=== PATIENT | male | born 1985 | race Caucasian/White ===

== ENCOUNTER 2022-10-07 11:59 | Emergency (ER) | payer SELFPAY ==
[~2022-10-07] VITALS: Ht 172.7 cm; Wt 74.8 kg
[2022-10-07 12:07] VITALS: BP 138/81
--- NOTE | 2022-10-07 13:00 | NUR ---
PT RECEIVED, CARE ASSUMED. PT A/OX4. PT PRESENTS SELF TO ER WITH C/O ABDO PAIN AND DIZZINESS. CONNECTED PT TO TELE MONITOR: SR 78. COLLECTED URINE. AWAITING TO BE SEEN BY
[2022-10-07 14:15] LABS: APPEARANCE,URINE CLEAR (CLEAR); BILIRUBIN,URINE NEGATIVE (NEGATIVE); BLOOD, URINE NEGATIVE (NEGATIVE); COLOR,URINE YELLOW (YELLOW); LEUKOCYTE ESTERASE ,URINE NEGATIVE (NEGATIVE); NITRITE, URINE NEGATIVE (NEGATIVE); UGLUCOSE NEGATIVE (NEGATIVE)
[2022-10-07 14:17] LABS: BASOPHILS % (AUTO) 0.5 % (0.0-2.0); EOSINOPHILS # (AUTO) 0.1 K/uL (0-0.4); HEMATOCRIT 45.6 % (36-52); HEMOGLOBIN 15.5 g/dL (12.0-18.0); LYMPHOCYTES # (AUTO) 2.3 K/uL (2.0-11.5); LYMPHOCYTES % (AUTO) 35.2 % (20.5-51.1); MEAN CORPUSCULAR HEMOGLOBIN 32 pg (27-31); MEAN CORPUSCULAR HGB CONC 34 g/dL (33-37); MEAN CORPUSCULAR VOLUME 92.7 fL (80-94); MONOCYTES # (AUTO) 0.5 K/uL (0.8-1.0); MONOCYTES % (AUTO) 7.7 % (1.7-9.3); NEUTROPHILS # (AUTO) 3.6 K/uL (1.8-7.7); NEUTROPHILS % (AUTO) 55.6 % (42.2-75.2); PLATELET COUNT (AUTO) 176 K/uL (140-450); RED BLOOD CELL COUNT(AUTO) 4.93 MIL/uL (4.20-6.10); RED CELL DISTRIBUTION WIDTH 13.1 % (11.6-13.7); WHITE BLOOD COUNT (AUTO) 6.5 K/uL (4.8-10.8)
[2022-10-07 14:40] LABS: ALBUMIN 4.8 g/dL (3.4-5.0); CARBON DIOXIDE 27.7 mmol/L (21-32); CREATININE 0.9 mg/dL (0.6-1.3); POTASSIUM 3.7 mmol/L (3.5-5.1)
--- NOTE | 2022-10-07 14:48 | NUR ---
Patient being evaluated by physician at bedside.
[2022-10-07] MEDS ORDERED: DICYCLOMINE HCL LIQUID 20 MG, ALUMINUM HYD/MAG/SIMETHICONE 30 ML, LIDOCAINE VISCOUS 2% ... PO ONE ×3 (15:10)
[2022-10-07] MEDS ORDERED: KETOROLAC 15 MG/ML VIAL IVP ONE (15:10)
[2022-10-07] MEDS ORDERED: KETOROLAC 30 MG/ML VIAL IM ONE (15:10)
[2022-10-07] MEDS ORDERED: ALUMINUM HYD/MAG/SIMETHICONE 30 ML UDC ONE (15:31)
[2022-10-07] MEDS ORDERED: DICYCLOMINE HCL LIQUID 10 MG/5 ML UDC ONE (15:31)
[2022-10-07] MEDS ORDERED: ONDA-188 PO (15:47)
[2022-10-07] MEDS ORDERED: FAMO-90 PO (15:47)
[2022-10-07] MEDS ORDERED: MAG355OR2 PO (15:47)
[2022-10-07 16:20] VITALS: BP 137/80
--- NOTE | 2022-10-07 16:24 | NUR ---
Patient discharged with v/s stable. Written and verbal after care instructions given and explained. Patient verbalized understanding. Ambulatory with steady gait. All questions addressed prior to discharge. Advised to follow up with PMD.
== END 2022-10-07 16:20 | disposition home or self-care (01) ==
LOC: MED 11:59
DX: K29.70 Gastritis, unspecified, without bleeding (principal)
CPT/HCPCS: 36415; 74021; 80053; 81003; 82150; 83690; 85025; 96372; 99284; J1885